=== PATIENT | female | born 1985 | race Caucasian/White ===

== ENCOUNTER 2016-12-07 12:46 | Emergency (ER) | payer OTHER ==
[~2016-12-07] VITALS: Ht 162.6 cm; Wt 75.8 kg
[~2016-12-07 12:46] MED LIST: BACTRIM DS TAB1 EACH PO; NOHOMEMEDICATIONS; NORCO 5-325 TA1 EACH PO
[2016-12-07] MEDS ORDERED: PENICILLIN VK500 M1 PO (14:05)
[2016-12-07] MEDS ORDERED: MOBIC15 MG PO (14:05)
[2016-12-07 14:26] VITALS: BP 104/63
== END 2016-12-07 14:26 | disposition home or self-care (01) ==
LOC: ER 12:46
DX: J02.0 Streptococcal pharyngitis (principal); A38.9 Scarlet fever, uncomplicated

== ENCOUNTER 2017-11-17 16:03 | Emergency (ER) | payer OTHER ==
[~2017-11-17 16:03] MED LIST changes: +MOBIC15 MG PO; +PENICILLIN VK500 M1 PO
== END 2017-11-17 17:12 | disposition left against medical advice (07) ==
LOC: ER 16:03
DX: Z53.21 Procedure and treatment not carried out due to patient leaving prior to being seen by health care provider (principal)